=== PATIENT | female | born 1990 | race Caucasian/White ===

== ENCOUNTER 2017-10-17 11:11 | Emergency (ER) | payer BC ==
[~2017-10-17] VITALS: Ht 162.6 cm; Wt 117.9 kg
[2017-10-17] MEDS ORDERED: FLUOXETINE HCL40 MG PO (11:25)
[2017-10-17] MEDS ORDERED: ALPRAZOLAM0.5 MG PO (11:25)
[2017-10-17] MEDS ORDERED: VENTOLIN HFA18 GM INH (11:28)
[2017-10-17] MEDS ORDERED: AUGMENTIN 875-1 EACH PO (11:28)
[2017-10-17] MEDS ORDERED: METHYLPREDNISOLO4 M1 PO (11:28)
== END 2017-10-17 11:33 | disposition home or self-care (01) ==
LOC: ED 11:11
DX: J40 Bronchitis, not specified as acute or chronic (principal)
CPT/HCPCS: 99283